=== PATIENT | female | born 1985 | race Caucasian/White ===

== ENCOUNTER 2017-08-16 17:50 | Outpatient (CLI) | payer OTHER ==
[2017-08-16 18:20] VITALS: BP 106/69
== END 2017-08-16 18:45 | disposition home or self-care (01) ==
LOC: TRG 17:50
PROVIDERS: ATTEND Obstetrics & Gynecology
DX: O47.1 False labor at or after 37 completed weeks of gestation (principal); Z3A.39 39 weeks gestation of pregnancy

== ENCOUNTER 2017-08-21 05:44 | Inpatient (IN) | payer OTHER ==
[2017-08-21] MEDS ORDERED: MINERAL OIL PO PRN (06:03)
[2017-08-21] MEDS ORDERED: ePHEDrine SULFATE IV PRN (06:03)
[2017-08-21] MEDS ORDERED: STADOL IV PRN (06:03)
[2017-08-21] MEDS ORDERED: SUBLIMAZE IV PRN (06:03)
[2017-08-21] MEDS ORDERED: XYLOCAINE 2% INFILTRATI ONE (06:03)
[2017-08-21] MEDS ORDERED: BRETHINE SUB-Q PRN (06:03)
[2017-08-21] MEDS ORDERED: BRETHINE IVP PRN (06:03)
--- NOTE | 2017-08-21 06:12 | History and Physical Report ---
History of Present Illness Date of examination: 08/21/17 Date of admission: 08/21/17 05:52 Chief complaint: Labor History of present illness: Pt is a 32yo HF EDC 08/24/17; EGA 39 4/7 weeks presents to L&D complaining of RUC's q 3-4 mins Cx 8-9/C/V/BBOW. She received care at [facility] since 9 weeks and course has been unremarkable. records are available and GBS negative. Past History Past Medical History: no pertinent history Past Surgical History: no surgical history Family/Genetic History: none Social history: no significant social history, - Obstetrical History Expected Date of Delivery: 08/24/17 Actual Gestation: 39 Week(s) 4 Day(s) : 5 Medications and Allergies Allergies Allergy/AdvReac Type Severity Reaction Status Date / Time No Known Allergies Allergy Verified 09/24/14 11:13 Home Medications Medication Instructions Recorded Confirmed Last Taken Type No Known Home Medications [No 09/25/14 11/21/15 Unknown History Reported Home Medications] Active Meds: Active Medications Butorphanol Tartrate (Stadol) 2 mg IV Q2H PRN PRN Reason: Pain , Severe (7-10) Ephedrine Sulfate (Ephedrine Sulfate) 10 mg IV Q2M PRN PRN Reason: Hypotension Fentanyl (Sublimaze) 100 mcg IV Q2H PRN PRN Reason: Labor Pain Lactated Ringer's (Lactated Ringers) 1,000 mls @ 125 mls/hr IV DIRECT NADIA Oxytocin/Sodium Chloride (Pitocin/Ns 20 Unit/1000ml Drip) 20 units in 1,000 mls @ 125 mls/hr IV DIRECT NADIA Oxytocin/Sodium Chloride (Pitocin/Ns 30 Unit/500ml) 30 units in 500 mls @ 1 mls /hr IV TITR NADIA; 1 MILLIUNITS/MIN PRN Reason: Protocol Lidocaine (Xylocaine 2%) 20 ml INFILTRATI ONCE ONE Stop: 08/21/17 06:04 Mineral Oil (Mineral Oil) 30 ml PO QHS PRN PRN Reason: Constipation Terbutaline Sulfate (Brethine) 0.25 mg SUB-Q ONCE PRN PRN Reason: Hyperstimulation/Hypertonicity Terbutaline Sulfate (Brethine) 0.25 mg IVP ONCE PRN PRN Reason: Hyperstimulation/Hypertonicity Review of Systems All systems: negative - Physical Exam Breasts: Positive: deferred Cardiovascular: Regular rate Lungs: Positive: Clear to auscultation Abdomen: Positive: normal appearance Genitourinary (Female): Positive: normal external genitalia Vagina: Positive: normal moisture Uterus: Positive: enlarged - Obstetrical FHR: category 1 Uterine Contraction Monitor Mode: External Cervical Dilatation: 8 Cervical Effacement Percentage: 100 station: -2 Uterine Contraction Pattern: Regular Uterine Tone Measurement Phase: Contraction Uterine Contraction Intensity: Moderate Results Result Diagrams: 08/21/17 06:05 All other labs normal. Assessment and Plan - Patient Problems (1) Active labor at term Onset Date: 08/21/17 Current Visit: No Status: Acute Plan to address problem: A: IUP @ 39 4/7 weeks in labor P: Admit to L&D for expectant vaginal delivery
[2017-08-21 06:40] LABS: Hematocrit 35.4 % (30.3-42.9); Hemoglobin 11.1 gm/dl (10.1-14.3); Mean Corpuscular HGB Conc 31 % (30-34); Mean Corpuscular Volume 80 fl (79-97); Platelet Count 117 K/mm3 (140-440); Red Blood Count 4.41 M/mm3 (3.65-5.03); Red Cell Distribution Width 16.5 % (13.2-15.2)
[2017-08-21 06:51] LABS: Mean Corpuscular Hemoglobin 25 pg (28-32)
[2017-08-21] MEDS ORDERED: LACTATED RINGERS 1,000 ML IV SCH (07:00)
[2017-08-21] MEDS ORDERED: PITOCin/NS 30 UNIT/500ML 30 UNITS/500 ML BAG IV SCH (07:00)
[2017-08-21] MEDS ORDERED: PITOCin/NS 20 UNIT/1000ML DRIP 20 UNITS/1,000 ML BAG IV SCH ×2 (07:00→08:00)
[2017-08-21] MEDS ORDERED: TYLENOL PO PRN (07:21)
[2017-08-21] MEDS ORDERED: ZOFRAN IV PRN (07:21)
[2017-08-21] MEDS ORDERED: MILK OF MAGNESIA PO PRN (07:21)
[2017-08-21] MEDS ORDERED: DULCOLAX PR PRN (07:21)
[2017-08-21] MEDS ORDERED: PHENERGAN PO PRN (07:21)
[2017-08-21] MEDS ORDERED: BENADRYL PO PRN (07:21)
[2017-08-21] MEDS ORDERED: LANSINOH TP PRN (07:21)
[2017-08-21] MEDS ORDERED: PHENERGAN PR PRN (07:21)
[2017-08-21] MEDS ORDERED: TUCKS PAD TP PRN (07:21)
[2017-08-21] MEDS ORDERED: Fluarix Quad 2017-2018(36 MOS+ IM ONE (07:21)
[2017-08-21] MEDS ORDERED: NORCO 5/325 PO PRN (07:21)
--- NOTE | 2017-08-21 07:21 | Procedure Note ---
OB Delivery Note - Delivery Date of Delivery: 08/21/17 Surgeon: ALICIA ZHAO Estimated blood loss: 200cc - Vaginal Delivery presentation: vertex Delivery position: OA Intrapartum events: precipitous labor- <3hr Delivery induction: none Delivery augmentation: rupture of membranes Delivery monitor: external FHT, external uterine Route of delivery: Delivery placenta: spontaneous Delivery cord: nuchal cord (x1), 3 umbilical vessels Episiotomy: none Delivery laceration: 2nd degree (perineal) Delivery repair: vicryl Anesthesia: local Delivery comments: delivered OA and placed on Mom's chest for [id number] bonding and delayed cord clamping. - A at 1 minute: 8 at 5 minutes: 9 Infant Gender: Female (3750gms)
[2017-08-21] MEDS ORDERED: SODIUM CHLORIDE FLUSH SYRINGE 10 ML IV NR (08:00)
[2017-08-21] MEDS: PITOCin/NS 20 UNIT/1000ML DRIP 20 UNITS/1,000 ML BAG IV SCH ×2 (08:23→08:24)
[2017-08-21] MEDS ORDERED: DERMOPLAST TP PRN (09:39)
[2017-08-21] MEDS ORDERED: PRENATAL VITAMIN PO SCH (10:00)
[2017-08-21] MEDS: COLACE PO SCH (11:13)
[2017-08-21] MEDS: FEOSOL PO SCH (11:14)
[2017-08-21] MEDS: MOTRIN PO SCH ×2 (12:34→18:06)
[2017-08-21 19:20] LABS: Hemoglobin 9.2 gm/dl (10.1-14.3)
[2017-08-22] MEDS: MOTRIN PO SCH ×3 (06:23→23:44)
[2017-08-22] MEDS ORDERED: M-M-R II VACCINE SUB-Q ONE (07:21)
[2017-08-22] MEDS ORDERED: BOOSTRIX IM ONE (07:21)
--- NOTE | 2017-08-22 09:35 | Progress Note ---
Assessment and Plan A: PPD 2 - stable Anemia - asymptomatic P: Discharge patient to home Take Ferrous sulfate 325mg PO BID Continue taking vitamin qd Take Ibuprofen/Motrin with food as needed for pain F/U in 6 weeks for PP exam Subjective - Subjective Date of service: 08/22/17 Principal diagnosis: Normal Spontaneous Vaginal Delivery Patient reports: appetite normal, voiding normally, pain well controlled, ambulating normally : doing well, nursing well Objective - Vital Signs Latest vital signs: Vital Signs Temp Pulse Resp BP BP Pulse Ox 08/22/17 07:33 98.3 F 67 16 88/49 97 08/21/17 23:06 98.6 F 74 16 101/64 08/21/17 16:58 98.2 F 18 95/51 08/21/17 11:54 98.4 F 58 L 18 96/49 98 Intake and Output 08/21/17 08/22/17 08/22/17 23:59 07:59 15:59 Intake Total 380 120 Balance 380 120 Intake: Oral 380 120 Other: Intake, Other Source Saline Solution Total, Intake Amount 380 120 # Voids Void 1 3 # Bowel Movements 0 - Exam Breasts: Present: normal Cardiovascular: Present: Regular rate, Normal S1, Normal S2, No murmurs Abdomen: Present: normal appearance, soft Vulva: both: normal, laceration/episiotomy (2nd degree perineal) Uterus: Present: normal, firm, fundal height below umbilicus Extremities: Present: normal Deep Tendon Reflex Grade: Normal +2 - Labs Labs: Abnormal lab results 08/21/17 Range/Units 18:59 Hgb 9.2 L (10.1-14.3) gm/dl Hct 29.0 L D (30.3-42.9) %
--- NOTE | 2017-08-22 09:42 | Discharge Summary ---
Providers - Providers Date of Admission: 08/21/17 05:52 Date of discharge: 08/22/17 Attending physician: CARISSA GALLAGHER MD Primary care physician: CARISSA GALLAGHER MD Hospitalization Reason for admission: active labor, IUP at term Delivery: Episiotomy: none Laceration: 2nd degree (perineal) Other procedures: none complications: none Discharge diagnosis: IUP at term delivered baby: female Hospital course: complicated by anemia of puerperium - asymptomatic Condition at discharge: Stable Disposition: DC-[id number] TO HOME OR SELFCARE Plan - Discharge Medications Prescriptions: Ferrous Sulfate [Feosol 325 MG tab] 325 mg PO BID 30 Days #60 tablet - Provider Discharge Summary Activity: routine, no sex for 6 weeks, no heavy lifting 4 weeks, no strenuous exercise Diet: routine Instructions: routine Additional instructions: [] Smoking cessation referral if applicable(refer to patient education folder for contact #) [] Refer to [facility] Booklet Call your doctor immediately for: * Fever > 100.5 * Heavy vaginal bleeding ( >1 pad per hour) * Severe persistent headache * Shortness of breath * Reddened, hot, painful area to leg or breast * Drainage or odor from incision. * Keep incision clean and dry at all times and follow doctor's instructions regarding bathing/showering - Follow up plan Follow up: CARISSA GALLAGHER MD [Primary Care Provider] - 6 Weeks (F/U in 6 weeks for PP exam)
[2017-08-22] MEDS: FEOSOL PO SCH ×2 (13:08→21:44)
[2017-08-22] MEDS: COLACE PO SCH ×2 (13:08→21:44)
[2017-08-23] MEDS: MOTRIN PO SCH (05:17)
[2017-08-23 13:36] VITALS: BP 114/72
== END 2017-08-23 13:10 | disposition home or self-care (01) | DRG 775 ==
LOC: TRG 05:44 → LD 05:52 → OB 08:41
PROVIDERS: ADMIT Obstetrics & Gynecology; ATTEND Obstetrics & Gynecology
PROC: 3E0234Z Introduction of Serum, Toxoid and Vaccine into Muscle, Percutaneous Approach (ICD-10-PCS; principal; 2017-08-21)
PROC: 10E0XZZ Delivery of Products of Conception, External Approach (ICD-10-PCS; 2017-08-21)
PROC: 0KQM0ZZ Repair Perineum Muscle, Open Approach (ICD-10-PCS; 2017-08-21)
DX: O62.3 Precipitate labor (principal); Z23 Encounter for immunization; O69.81X0 Labor and delivery complicated by cord around neck, without compression, not applicable or unspecified; O70.1 Second degree perineal laceration during delivery; D64.9 Anemia, unspecified; Z3A.39 39 weeks gestation of pregnancy; Z37.0 Single live birth; O99.03 Anemia complicating the puerperium
CPT/HCPCS: 36415; 85014; 85018; 85027; 86592; 86762; 86850; 86900; 86901; 90471; 90686; 90715; 99211; A6250; G0463; J2590; J7120